=== PATIENT | female | born 1950 | race African-American/Black ===

== ENCOUNTER 2021-05-27 22:01 | Emergency (ER) | payer MEDICARE, BC ==
[~2021-05-27] VITALS: Ht 162.6 cm; Wt 82.0 kg
[~2021-05-27 22:01] MED LIST: LEVO25TA2 PO; LOSA-20 PO; OMEP20TA15 PO; PROSOL IH; PROT40 PO
[2021-05-28] MEDS ORDERED: IBUP-2029 MT (01:53)
[2021-05-28 01:59] VITALS: BP 160/90
== END 2021-05-28 02:10 | disposition home or self-care (01) ==
LOC: ER 22:01
DX: R51.9 Headache, unspecified (principal); R07.89 Other chest pain; G89.11 Acute pain due to trauma; H61.21 Impacted cerumen, right ear; I10 Essential (primary) hypertension; E11.9 Type 2 diabetes mellitus without complications; V49.59XA Passenger injured in collision with other motor vehicles in traffic accident, initial encounter; Y93.89 Activity, other specified; Y92.488 Other paved roadways as the place of occurrence of the external cause
CPT/HCPCS: 71045; 99285